=== PATIENT | male | born 1995 | race Caucasian/White ===

== ENCOUNTER 2022-05-12 01:45 | Emergency (ER) | payer SELFPAY ==
[~2022-05-12] VITALS: Ht 165.1 cm; Wt 74.8 kg
[2022-05-12 01:50] VITALS: BP 121/65
--- NOTE | 2022-05-12 01:53 | NUR ---
PT TO BED 5
--- NOTE | 2022-05-12 01:55 | NUR ---
SPOKE WITH PATIENT AT BEDSIDE, PATIENT WITH COMPLAINTS OF INJURY TO RIGHT SHOULDER AFTER FALLING WHICH OCCURED WHILE PLAYING FOOTBALL ON THURSDAY (05/11/2022) AFTERNOON. PATIENT REPORTS CURRENT PAIN LEVEL OF 8-9. PATIENT REPORTS TAKING TYLENOL APPROXIMATELY 2 HOURS AGO WHICH IS NOT HELPING. PATIENT DENIES ANY PREVIOUS INJURY TO AFFECTED SHOULDER, AND DENIES ANY PAST MEDICAL HISTORY
--- NOTE | 2022-05-12 01:57 | NUR ---
RADIOLOGY AT BEDSIDE
[2022-05-12] MEDS ORDERED: IBUPROFEN 600 MG TAB PO ONE (02:35)
--- NOTE | 2022-05-12 03:40 | NUR ---
Patient discharged with v/s stable. Written and verbal after care instructions given and explained. Patient alert, oriented and verbalized understanding of instructions. Ambulatory with steady gait. All questions addressed prior to discharge. ID band removed. Patient advised to follow up with PMD. Rx of Naproxen given. Patient educated on indication of medication including possible reaction and side effects. Opportunity to ask questions provided and answered. WORK NOTE HANDED TO PATIENT.
[2022-05-12] MEDS ORDERED: NAPR-54 PO (03:43)
== END 2022-05-12 03:40 | disposition home or self-care (01) ==
LOC: MED 01:45
DX: S43.401A Unspecified sprain of right shoulder joint, initial encounter (principal); W18.30XA Fall on same level, unspecified, initial encounter; Y93.89 Activity, other specified; Y92.89 Other specified places as the place of occurrence of the external cause; Y99.8 Other external cause status
CPT/HCPCS: 73030; 99283; Q0092